=== PATIENT | male | born 1950 | race Caucasian/White ===

== ENCOUNTER 2016-12-27 04:43 | Inpatient (IN) ==
[2016-12-20 12:54] LABS: MANUAL DIFF NEEDED? NO; URINE MICRO REVIEW NEEDED? NO; URINE SOURCE CLEAN CATCH
[2016-12-20 13:03] LABS: EOS# 0.16 X1000 (0.0-0.7); EOS% 1.8 % (0.0-10.0); HEMATOCRIT 46.1 % (42.0-52.0); HEMOGLOBIN 15.9 g/dL (14.0-18.0); IMM GRAN# 0.02 X1000 (0.0-0.04); IMM GRAN% 0.2 % (0.0-0.5); LYMPH# 1.84 X1000 (1.2-3.4); LYMPH% 20.9 % (20.5-51.1); MCH 30.1 PG (27-31); MCHC 34.5 g/dL (33-37); MCV 87.1 FL (81-99); MONO# 0.75 X1000 (0.11-0.59); MONO% 8.5 % (1.7-9.3); MPV 10.5 FL (7.4-10.4); NEUT% 67.6 % (42.2-75.2); PLT 310 X1000 (130-400); RBC 5.29 XMIL (4.7-6.1)
[2016-12-20 13:05] LABS: BILIRUBIN URINE NEGATIVE (NEGATIVE); BLOOD URINE NEGATIVE (NEGATIVE); COLOR YELLOW; GLUCOSE URINE NEGATIVE (NEGATIVE); LEUKOCYTES URINE NEGATIVE (NEGATIVE); NITRITE URINE NEGATIVE (NEGATIVE); PH URINE 5.5; PROTEIN URINE NEGATIVE (NEGATIVE); SP GRAVITY URINE 1.015; TURBIDITY URINE CLEAR (CLEAR); UROBILINOGEN URINE NORMAL (NORMAL)
[2016-12-20 13:08] LABS: UR EPITHELIAL CELLS <10 /HPF (<10); URINE BACTERIA NEGATIVE /HPF; URINE RBC <10 /HPF (<10); URINE WBC <10 /HPF (<10)
[2016-12-20 13:17] LABS: INR 0.93; PROTIME 9.7 Seconds (9.2-11.7); PTT 29.1 Seconds (22.0-36.0)
--- NOTE | 2016-12-20 13:21 | EKG Report ---
Test Performed on : 12/20/2016 12:12:10 PM Test Reason : PAT Blood Pressure : / mmHG Vent. Rate : 082 BPM Atrial Rate : 082 BPM P-R Int : 160 ms QRS Dur : 078 ms QT Int : 364 ms P-R-T Axes : 069 037 019 degrees QTc Int : 425 ms Normal sinus rhythm. Normal ECG No previous ECGs available Confirmed by Marry SINGH, Shaheen Land ([id number]) on 12/21/2016 7:59:27 PM
[2016-12-20 13:37] LABS: AGAP 15; BUN 19 mg/dL (8-22); CALCIUM 9.3 mg/dL (8.8-10.2); CHLORIDE 99 mmol/L (98-107); COSMO 284; POTASSIUM 4.1 mmol/L (3.5-5.1); SODIUM 139 mmol/L (136-145); TCO2 25 mmol/L (25-35)
[2016-12-27] MEDS ORDERED: PEPCID ONE (08:16)
[2016-12-27] MEDS ORDERED: REGLAN ONE (08:16)
[2016-12-27] MEDS ORDERED: COLACE ONE (08:16)
[2016-12-27] MEDS ORDERED: LR 1,000 ML ONE (08:17)
[2016-12-27] MEDS ORDERED: CELEBREX ONE (08:17)
[2016-12-27] MEDS ORDERED: LYRICA ONE (08:17)
[2016-12-27] MEDS ORDERED: KEFZOL 2 GM/D5W 2 GM/50 ML IVPB ONE (08:17)
[2016-12-27] MEDS ORDERED: SYNTHROID PO SCH (09:00)
[2016-12-27] MEDS ORDERED: LIPITOR PO SCH ×2 (09:00→21:00)
[2016-12-27] MEDS ORDERED: VANCOMYCIN ONE (10:13)
[2016-12-27] MEDS ORDERED: MARCAINE 0.25% PF/EPI 1:200,000 ONE (10:13)
[2016-12-27] MEDS ORDERED: TORADOL ONE (10:13)
[2016-12-27] MEDS ORDERED: SODIUM CHLORIDE 0.9% ONE (10:13)
[2016-12-27] MEDS ORDERED: EXPAREL 1.3% ONE (10:14)
[2016-12-27] MEDS ORDERED: NEOSPORIN G.U. IRRIGANT ONE (10:14)
[2016-12-27] MEDS ORDERED: CLAVE SECONDARY SET 11953 ONE (10:14)
[2016-12-27] MEDS ORDERED: CYKLOKAPRON 1,000 MG/NS 1,000 MG/100 ML IVPB ONE ×2 (10:14)
[2016-12-27] MEDS ORDERED: DURAMORPH ONE (10:25)
[2016-12-27 11:24] LABS: URINE MICRO REVIEW NEEDED? NO; URINE SOURCE CATH
[2016-12-27 11:58] LABS: BILIRUBIN URINE NEGATIVE (NEGATIVE); BLOOD URINE NEGATIVE (NEGATIVE); COLOR YELLOW; GLUCOSE URINE NEGATIVE (NEGATIVE); LEUKOCYTES URINE NEGATIVE (NEGATIVE); NITRITE URINE NEGATIVE (NEGATIVE); PROTEIN URINE NEGATIVE (NEGATIVE); SP GRAVITY URINE 1.025; TURBIDITY URINE CLEAR (CLEAR); UR EPITHELIAL CELLS <10 /HPF (<10); URINE BACTERIA NEGATIVE /HPF; URINE RBC <10 /HPF (<10); URINE WBC <10 /HPF (<10); UROBILINOGEN URINE NORMAL (NORMAL)
[2016-12-27] MEDS ORDERED: NS 1,000 ML ONE (13:57)
--- NOTE | 2016-12-27 14:48 | Diag Imaging Result Document ---
PROCEDURE NAME: KNEE 1-2 VIEWS-LEFT - 12/27/2016 PORTABLE LEFT KNEE TWO VIEWS: FINDINGS: The patient has undergone recent orthopedic replacement of the left knee. There is good alignment to the femoral and tibial components. There are anterior skin donavan with a superior surgical drain.
[2016-12-27] MEDS ORDERED: VERSED ONE (15:16)
[2016-12-27] MEDS ORDERED: DIPRIVAN 1% ONE (15:17)
[2016-12-27] MEDS ORDERED: DIPRIVAN 1% 500 MG/50 ML BOTTLE ONE (15:17)
[2016-12-27] MEDS ORDERED: FENTANYL ONE (15:17)
[2016-12-27] MEDS ORDERED: SODIUM CHLORIDE 0.9% 10 ML ONE (16:10)
[2016-12-27] MEDS ORDERED: ROBINUL ONE (16:10)
[2016-12-27] MEDS ORDERED: EPHEDRINE ONE (16:10)
[2016-12-27] MEDS ORDERED: XYLOCAINE-MPF 2% ONE (16:11)
[2016-12-27] MEDS ORDERED: ZEMURON ONE (16:11)
[2016-12-27] MEDS ORDERED: DECADRON ONE (16:11)
[2016-12-27] MEDS ORDERED: OFIRMEV 1000 MG/ISOTONIC SOLN 1,000 MG/100 ML BOTTLE ONE (16:11)
[2016-12-27] MEDS ORDERED: LR 2,000 ML ONE (16:11)
[2016-12-27] MEDS ORDERED: MORPHINE IV PRN (17:39)
[2016-12-27] MEDS ORDERED: MILK OF MAGNESIA PO PRN (17:45)
[2016-12-27] MEDS ORDERED: ZOFRAN PO PRN (17:45)
[2016-12-27] MEDS: KEFZOL 2 GM/D5W 2 GM/50 ML IVPB IV SCH (18:17)
[2016-12-27] MEDS: TYLENOL PO SCH ×2 (18:17→23:29)
[2016-12-27] MEDS: NS 1,000 ML IV SCH (18:17)
[2016-12-27] MEDS: COZAAR PO SCH (19:00)
[2016-12-27] MEDS: NORVASC PO SCH (19:01)
[2016-12-27] MEDS: METAMUCIL POWDER PACKET PO SCH (19:01)
[2016-12-27] MEDS: PERIDEX MT SCH (21:05)
[2016-12-27] MEDS: COLACE PO SCH (21:05)
--- NOTE | 2016-12-27 21:27 | OPERATIVE NOTE ---
PROCEDURE DATE: 12/27/2016 PREOPERATIVE DIAGNOSIS: Degenerative osteoarthritis of the left knee. POSTOPERATIVE DIAGNOSIS: Degenerative osteoarthritis of the left knee. PROCEDURE: Left total knee arthroplasty with DePuy Attune size 7 posterior stabilized femur, size 8 tibial base plate, and an 8 mm rotating platform tibial insert, a 41 mm medialized anatomic patella. SURGEON: Parminder Henderson MD MICROWAVE ENGINEER: JERSON Burks and Brayden Anna RN. ANESTHESIA: Spinal. IV FLUIDS: 2000 mL lactated Ringer's. ESTIMATED BLOOD LOSS: 20 mL. TOURNIQUET TIME: 90 minutes at 350 mmHg. COMPLICATIONS: None. INDICATION: This is a 66-year-old male with chronic history of worsening pain and discomfort over the left knee. Continued pains discomfort despite appropriate nonoperative treatment. X-rays revealed degenerative osteoarthritis. Recommendation to proceed with left total knee arthroplasty was offered. Risks and benefits of surgery were explained, including the risks of anesthesia, , bleeding, infection, failure to relieve pain, postop stiffness, nerve injury, blood clots, and other imponderables. All questions answered. Patient and family wished to proceed with surgery. DETAILS OF OPERATION: Patient taken to the operating room and underwent spinal anesthesia. After adequate anesthesia was obtained, the patient's left lower extremity was subsequently prepped and draped in usual sterile fashion and Esmarch was used to exsanguinate left lower extremity. The tourniquet was inflated to 350 mmHg. A standard anterior incision made with skin knife. Medial and lateral skin envelopes were developed. Standard medial parapatellar arthrotomy was then performed. Patella fat pad was excised. Retractors were then placed. 1 cm anterior to the PCL insertion, starting reamer was passed. The intramedullary guide with a distal femoral cutting block was pinned in position. Distal femoral cut was then performed in standard fashion. A sizing block was placed and measured to size 7. Corresponding pins were placed. Anterior and posterior chamfer cuts were then made. Attention was then turned to the proximal tibia where further resection of ACL and PCL was performed. A proximal tibial cutting block was placed in positioned using the extramedullary guide. Had good alignment confirmed with the alignment radha. The proximal tibia was then resected. A curved osteotome was used to remove the posterior osteophytes. Medial and lateral meniscus was excised. A spacer block was placed and had good soft tissue balance with flexion and extension. After this had been performed, attention was turned back to the proximal tibia where a size 8 base plate appeared to be correct size and was pinned in position. This was followed by a central reamer and a fin punch. A box cutting guide was then pinned in position. A box cut was performed. A size 7 femoral component was placed and had good fit. Two lug holes were drilled. After this had been performed, the trial tibial insert was placed in and attention turned to the patella. This was resected in standard fashion. A 41 appeared to be correct size. Corresponding holes were drilled. A trial patella component was then placed. Had good patellofemoral tracking. The trial components were removed. Copious irrigation was then performed with antibiotic pulsatile lavage while vancomycin was mixed with cement on the back table. Sequential cementing was then performed, first with the tibial tray and excess cement was removed with a [place]. This was followed by the femoral component and excess cement was removed with a [place]. A trial tibial insert was placed. Axial loading and full extension was maintained while cement cured. The patella was cemented in standard fashion. Patella clamp was placed. Exparel was placed in the deep soft tissue, as well as the subcutaneous tissue. After the cement cured, the peripheral cement was removed with a small osteotome. A size 8 mm rotating platform tibial insert appeared to be correct size. The trial insert was removed. Exparel was placed in the deep posterior capsule. The wound was copiously irrigated with antibiotic pulsatile lavage. A size 8 mm rotating platform tibial insert was then placed. Had good soft tissue balancing, good range of motion and good patellofemoral tracking. A 1/8 Hemovac drain was placed was not sewn in. Copious irrigation was then performed once again with antibiotic pulsatile lavage. #1 Vicryl was used to repair the arthrotomy, followed by 2-0 Vicryl in the subcutaneous tissue and skin donavan. Adaptic, sterile 4 x 4, Webril, cryo unit, Dagoberto wrap was applied to the left lower extremity. Patient tolerated the procedure well with no complications and was transferred to the recovery room in stable condition. cc: Parminder Henderson MD
[2016-12-27] MEDS: OXY IR PO PRN (23:28)
[2016-12-28] MEDS: NS 1,000 ML IV SCH (01:00)
[2016-12-28] MEDS: KEFZOL 2 GM/D5W 2 GM/50 ML IVPB IV SCH (02:40)
[2016-12-28] MEDS ORDERED: XARELTO PO SCH (06:00)
[2016-12-28 06:06] LABS: HEMATOCRIT 39.1 % (42.0-52.0); HEMOGLOBIN 13.3 g/dL (14.0-18.0)
[2016-12-28] MEDS: TYLENOL PO SCH (06:24)
[2016-12-28] MEDS: OXY IR PO PRN ×2 (06:24→10:13)
[2016-12-28 06:26] LABS: AGAP 15; BUN 15 mg/dL (8-22); CALCIUM 8.5 mg/dL (8.8-10.2); CHLORIDE 102 mmol/L (98-107); COSMO 280; POTASSIUM 4.9 mmol/L (3.5-5.1); SODIUM 138 mmol/L (136-145); TCO2 21 mmol/L (25-35)
--- NOTE | 2016-12-28 06:35 | PROGRESS NOTE ---
DATE: 12/28/2016 SUBJECTIVE: The patient is a pleasant 66-year-old male who is one day status post left total knee arthroplasty. Patient is currently resting comfortably. He has no complaints. OBJECTIVE: On physical exam, the patient's left lower extremity dressing is intact. It appears his calf is soft. He is neurovascularly intact distally. He is able to actively dorsiflex and has active dorsiflexion and plantar flexion. LABORATORY DATA: His hemoglobin is 13.3. Hematocrit is 39.1. IMPRESSION: Postop day #1 status post left total knee arthroplasty. PLAN: At this time, we will change his dressing and discontinue his Braun and Hep-Lock his IV. We will mobilize physical therapy and plan on discharging home after his therapy session if he is mobilizing well. Patient will receive home physical therapy. cc: Parminder Henderson MD
[2016-12-28 08:01] VITALS: BP 131/67
[2016-12-28] MEDS: PERIDEX MT SCH (08:03)
[2016-12-28] MEDS: NORVASC PO SCH (08:03)
[2016-12-28] MEDS: COZAAR PO SCH (08:03)
[2016-12-28] MEDS: COLACE PO SCH (08:03)
[2016-12-28] MEDS: METAMUCIL POWDER PACKET PO SCH (08:04)
[2016-12-28] MEDS ORDERED: DECADRON IV ONE (09:00)
[2016-12-28] MEDS ORDERED: PEPCID PO SCH (09:00)
== END 2016-12-28 12:26 | disposition home health service (06) ==
LOC: SURHOLD 04:43 → 4N 16:58
PROVIDERS: ADMIT Orthopaedic Surgery Adult Reconstructive Orthopaedic Surgery; ATTEND Orthopaedic Surgery Adult Reconstructive Orthopaedic Surgery

== ENCOUNTER 2019-03-05 05:17 | Day surgery (SDC) ==
[2019-02-25 10:19] LABS: HEMATOCRIT 44.4 % (42.0-52.0); HEMOGLOBIN 14.9 g/dL (14.0-18.0); MCH 30.8 PG (27-31); MCHC 33.6 g/dL (33-37); MCV 91.7 FL (81-99); MPV 10.1 FL (7.4-10.4); RBC 4.84 XMIL (4.7-6.1); RDW 13.2 % (11.5-14.5); WBC 10.92 X1000 (4.8-10.8)
[2019-02-25 10:25] LABS: INR 0.98; PROTIME 13.8 Seconds (11.0-16.0)
[2019-02-25 10:43] LABS: AGAP 11; BUN 15 mg/dL (8-22); CALCIUM 8.9 mg/dL (8.8-10.2); CHLORIDE 101 mmol/L (98-107); COSMO 279; CREATININE 1.1 mg/dL (0.7-1.2); ESTIMATED GFR > 60; GLUCOSE 142 mg/dL (70-104); POTASSIUM 4.6 mmol/L (3.5-5.1); SODIUM 138 mmol/L (136-145); TCO2 26 mmol/L (25-35)
[2019-03-05] MEDS ORDERED: KEFZOL 1 GM/D5W 2 GM/100 ML IVPB ONE (06:07)
[2019-03-05] MEDS ORDERED: LR 1,000 ML ONE ×2 (06:07→06:25)
[2019-03-05] MEDS ORDERED: MARCAINE 0.25% PF/EPI 1:200,000 ONE (06:25)
[2019-03-05] MEDS ORDERED: B & O 16A SUPP ONE (06:25)
[2019-03-05] MEDS ORDERED: DIPRIVAN 1% ONE (06:32)
[2019-03-05] MEDS ORDERED: ZOFRAN ONE (07:33)
[2019-03-05] MEDS ORDERED: XYLOCAINE-MPF 2% ONE (07:33)
[2019-03-05] MEDS ORDERED: DECADRON ONE (07:33)
[2019-03-05] MEDS ORDERED: OFIRMEV 1000 MG/ISOTONIC SOLN 1,000 MG/100 ML BOTTLE ONE (07:33)
[2019-03-05] MEDS ORDERED: ZEMURON ONE (07:33)
[2019-03-05] MEDS ORDERED: QUELICIN (DOSE) ONE (07:33)
[2019-03-05 08:37] LABS: URINE SOURCE CATH
[2019-03-05 08:40] LABS: BILIRUBIN URINE NEGATIVE (NEGATIVE); BLOOD URINE NEGATIVE (NEGATIVE); COLOR YELLOW; GLUCOSE URINE TRACE mg/dL (NEGATIVE); KETONE URINE NEGATIVE (NEGATIVE); LEUKOCYTES URINE NEGATIVE (NEGATIVE); NITRITE URINE NEGATIVE (NEGATIVE); PROTEIN URINE NEGATIVE (NEGATIVE); SP GRAVITY URINE 1.014; TURBIDITY URINE CLEAR (CLEAR); UROBILINOGEN URINE NORMAL (NORMAL)
[2019-03-05 08:41] LABS: UR EPITHELIAL CELLS <10 /HPF (<10); URINE BACTERIA NEGATIVE /HPF; URINE RBC <10 /HPF (<10); URINE WBC <10 /HPF (<10)
[2019-03-05] MEDS ORDERED: NEOSTIGMINE ONE (08:52)
[2019-03-05] MEDS ORDERED: ROBINUL ONE (08:52)
[2019-03-05] MEDS ORDERED: FENTANYL ONE (08:54)
[2019-03-05] MEDS ORDERED: NS 1,000 ML ONE (09:37)
[2019-03-05] MEDS: DILAUDID ONE ×4 (09:56→10:12)
[2019-03-05] MEDS ORDERED: MORPHINE IV PRN (11:05)
[2019-03-05] MEDS ORDERED: SODIUM CHLORIDE 0.9% INJ PRN (11:15)
[2019-03-05] MEDS ORDERED: NORCO-10 PO PRN (11:15)
[2019-03-05] MEDS ORDERED: PHENERGAN PR PRN (11:15)
[2019-03-05] MEDS ORDERED: BENADRYL IV PRN (11:15)
[2019-03-05] MEDS ORDERED: NORCO-7.5 PO PRN (11:15)
[2019-03-05] MEDS ORDERED: PHENERGAN IV PRN (11:15)
[2019-03-05] MEDS ORDERED: PHENERGAN PO PRN (11:15)
[2019-03-05] MEDS ORDERED: DILAUDID IV PRN (11:15)
[2019-03-05] MEDS ORDERED: LABETALOL IV PRN (11:15)
[2019-03-05] MEDS ORDERED: DITROPAN PO PRN (11:15)
[2019-03-05] MEDS ORDERED: ZOFRAN IV PRN (11:15)
[2019-03-05] MEDS ORDERED: NORCO-5 PO PRN (11:15)
[2019-03-05] MEDS: NS 1,000 ML IV SCH ×2 (11:20→21:21)
[2019-03-05] MEDS ORDERED: OFIRMEV 1000 MG/ISOTONIC SOLN 1,000 MG/100 ML BOTTLE IV PRN (14:30)
[2019-03-05] MEDS: KEFZOL 2 GM/D5W 2 GM/50 ML IVPB IV SCH ×2 (15:12→22:16)
[2019-03-05] MEDS: PERIDEX MT SCH (20:16)
[2019-03-05] MEDS: COLACE PO SCH (20:32)
[2019-03-06] MEDS: KEFZOL 2 GM/D5W 2 GM/50 ML IVPB IV SCH ×2 (05:21→06:29)
[2019-03-06] MEDS: NS 1,000 ML IV SCH (06:30)
[2019-03-06 06:40] LABS: HEMATOCRIT 42.5 % (42.0-52.0); HEMOGLOBIN 14.2 g/dL (14.0-18.0); MCH 30.6 PG (27-31); MCHC 33.4 g/dL (33-37); MCV 91.6 FL (81-99); MPV 10.5 FL (7.4-10.4); RBC 4.64 XMIL (4.7-6.1); WBC 14.71 X1000 (4.8-10.8)
[2019-03-06 07:05] LABS: CALCIUM 8.7 mg/dL (8.8-10.2); CREATININE 1.2 mg/dL (0.7-1.2); POTASSIUM 4.1 mmol/L (3.5-5.1)
[2019-03-06 07:46] VITALS: BP 134/73
[2019-03-06] MEDS: PERIDEX MT SCH (08:48)
[2019-03-06] MEDS: COLACE PO SCH (08:48)
--- NOTE | 2019-03-06 09:59 | PROGRESS NOTE ---
DATE: 03/06/2019 SUBJECTIVE: Mr. Hall reports a good night overnight. He denies significant pain. He denies nausea or vomiting. His Braun catheter is draining well. OBJECTIVE: Vital Signs: T 98.4 degrees, P 74, BP 148/68, urine output was recorded in the amount of 4625 mL. General: On physical examination, no acute distress. Abdomen: Appropriately tender. Nondistended. Incisions are clean, dry, and intact in all port sites. : Braun catheter in place draining straw-colored urine. LABS: White cell count is 15,000, hematocrit 42, creatinine is 1.2. ASSESSMENT/PLAN: A 68-year-old male postop day 1 status post robotic-assisted laparoscopic prostatectomy with laparoscopic urethral suspension, who was doing well. He was educated on postoperative care. He was deemed to be ready for discharge. 1. Discharge home with Braun catheter with large bag and leg bag. 2. He will go home with prescriptions for [place] 7.5 as needed, Toradol 10 mg three times a day as needed, Keflex 250 twice daily (#6), Ditropan 5 three times a day as needed. 3. We will see him in clinic on 03/10/2019 for Braun catheter removal. cc: Gregory Mcclendon MD
--- NOTE | 2019-03-06 11:09 | OPERATIVE NOTE ---
PROCEDURE DATE: 03/05/2019 SURGEON: Gregory Mcclendon MD. PREOPERATIVE DIAGNOSES: 1. Elevated prostate-specific antigen. 2. Prostate cancer. POSTOPERATIVE DIAGNOSES: 1. Elevated prostate-specific antigen. 2. Prostate cancer. PROCEDURE PERFORMED: Robotic assisted laparoscopic radical prostatectomy with bilateral nerve sparing, laparoscopic urethral suspension. INDICATIONS: A 68-year-old male who presented with elevated PSA. He underwent prostate biopsy which revealed multiple cores of Chaya 6 prostate adenocarcinoma. He was counseled on treatment options and wanted to proceed with robotic prostatectomy. He was counseled on the risks, specifically the risks of urinary incontinence and erectile dysfunction. He voiced understanding. FINDINGS: Bilateral nerve sparing was performed, watertight vesicourethral anastomosis at 240 mL. DESCRIPTION OF PROCEDURE: After obtaining informed consent, the patient was brought to the operating room. Perioperative antibiotics and general endotracheal anesthesia was administered. He was placed in a lithotomy position. His upper and lower extremities were appropriately padded. He was prepped and draped in a sterile fashion. An 18-Yemeni Braun catheter was introduced and placed to gravity drainage. We began by making a small stab incision just above his umbilicus with an 11 blade, followed by introduction of a Veress needle connected to saline-filled syringe. We confirmed positive drop test, followed by aspiration of fluid in the syringe without evidence of GI contents or blood. We then insufflated his pneumoperitoneal pressure to 15 mmHg. Following that, we demarcated the trocar sites in a standard prostatectomy fashion. Next, 10 mL of 0.25% Marcaine were used for local anesthetic at the trocar sites. This was followed by Bovie electrocautery incision of the supraumbilical area and introduction of a 12 mm trocar and then insertion of a robotic camera. Inspection revealed no significant abdominal adhesions. I was able to place the rest of the trocars under direct vision. He was then placed in the steep Trendelenburg position and then the robot was docked. I began by incising peritoneum approximately 3 cm above the rectum. I dissected, isolated, and transected the right vas deferens, followed by identification, isolation, and dissection of right seminal vesicle. We used cautery judiciously, laterally to the seminal vesicle. We then performed the same thing on the left side. We then dissected anterior to the vas deferens to the level of the prostate and subsequently posterior to seminal vesicles by incising Denonvilliers' fascia, developing perirectal space. Attention was then turned to developing the space of Retzius. I incised lateral to each medial umbilical ligament, allowing us to drop the bladder. The endopelvic fascia was exposed by clearing off fat around the prostate. We then incised it sharply with monopolar cautery and dissected along the contour of the prostate. Puboprostatic ligaments were divided sharply. Superficial dorsal venous complex was controlled with bipolar electrocautery. Deep dorsal venous complex was controlled with a 0 V-Loc [id number] suture, followed by anterior periosteal elevation. Following that, attention was turned to the bladder neck. It was identified by gentle tugging on the Braun catheter with the balloon in place. Monopolar cautery was used to incise the bladder neck and eventually, the Braun catheter was seen. It was brought onto the field and placed on anterior traction. I circumferentially incised the bladder neck, allowing us to further elevate the prostate anteriorly. The plane was then developed between the prostate and the bladder until the vas deferens and seminal vesicles came into the view. Those were brought out and placed on anterior traction. We then turned our attention to the nerve-sparing and reflection of the vascular pedicles. I incised periprostatic fascia, and then used Hem-o-alana clips and judicious cautery to reflect the neurovascular bundles posterolaterally. Subsequent to that, we dissected along the perirectal wall posteriorly until the prostate was attached at its apex. I sharply incised the periurethral tissue and given that his biopsy did not have any positive cores at the apex, we performed maximal urethral length sparing technique by dissecting out approximately 1 cm of the urethra. The urethra was then transected sharply. The prostate was delivered and placed into an EndoCatch bag. The field was irrigated and hemostasis appeared to be excellent. We then used 3-0 V-Loc suture to perform a Blair stitch. This was done by reapproximating the perivesical and periurethral fascia with both sutures and leaving them for future laparoscopic suspension. We then performed vesicourethral anastomosis with another 3 V-Loc suture running in a clockwise and counterclockwise fashion, and then cross-tying the sutures. A fresh 18-Yemeni Braun catheter was placed. We then performed laparoscopic suspension by using the previously placed Blair sutures, threading them through the periosteum, and allowing us to elevate the urethra. We then decreased pneumoperitoneal pressure to 3 mmHg. There was no evidence of bleeding. This was followed by testing the anastomosis by instilling 240 mL of sterile fluid into the bladder. There was no evidence of leak at the anastomotic site. We then decreased the pneumoperitoneal pressure once more and confirmed adequate hemostasis. The robot was then undocked. The supraumbilical incision was extended and the prostate was delivered. A #1 PDS suture was used to close the supraumbilical incision in a running fashion. A 0 Vicryl suture was used to close the fascia of the 12 mm economist research assistant trocar. The wounds were copiously irrigated. A 4-0 Monocryl suture was used for subcuticular closure. This was followed by application of Covidien adhesive agent. The patient's catheter was kept to gravity drainage. He was extubated and taken to the PACU for further recovery. ESTIMATED BLOOD LOSS: 150 mL. COMPLICATIONS: None. SPECIMENS: Prostate gland. DRAINS: An 18-Yemeni Braun catheter. DISPOSITION: To PACU and subsequently the floor for recovery. cc: Gregory Mcclendon MD
== END 2019-03-06 10:05 | disposition home or self-care (01) ==
LOC: 4N 05:17 → OR 05:17
PROVIDERS: ATTEND Urology
CPT/HCPCS: 80048; 81001; 82948; 85027; 85610; 85730; 88309; 88313; 94761; 94799; A9270; J0131; J0330; J0690; J1100; J1170; J2405; J3010; J7030; J7120; S2900; XXXXX